=== PATIENT | male | born 1935 | race Caucasian/White ===

== ENCOUNTER 2016-11-11 07:57 | Inpatient (IN) | payer MEDICARE, OTHER ==
[~2016-11-11] VITALS: Ht 175.3 cm; Wt 95.9 kg
[2016-11-11 08:51] VITALS: BP 145/78
[2016-11-11] MEDS ORDERED: ATOR10TA9 PO (09:03)
[2016-11-11] MEDS ORDERED: APIX5TAB PO (09:03)
[2016-11-11] MEDS ORDERED: SOTA80TA8 PO (09:04)
[2016-11-11] MEDS ORDERED: AMLO5TAB4 PO (09:04)
[2016-11-11] MEDS ORDERED: TAMS-11 PO (09:05)
[2016-11-11] MEDS ORDERED: LEVO100T PO (09:05)
[2016-11-11 09:09] LABS: BLOOD UREA NITROGEN 14 mg/dL (7-18)
[2016-11-11] MEDS ORDERED: DORZ10DR7 EACHEYE (09:09)
[2016-11-11] MEDS ORDERED: CHOL20003 PO (09:10)
[2016-11-11] MEDS ORDERED: BIMA2.5D RIGHTEYE (09:12)
[2016-11-11] MEDS ORDERED: PLEASE ENTER ALLERGIES MC SCH ×2 (13:00)
[2016-11-11 14:00] VITALS: BP 138/70
[2016-11-11] MEDS: SODIUM CHLORIDE FLUSH 10ML SYR IVF SCH ×2 (14:07→20:14)
[2016-11-11] MEDS: SOTALOL 80MG TABLET PO SCH (15:42)
[2016-11-11] MEDS ORDERED: CEFAZOLIN PMX 1GM/50ML 50 ML IVPB ONE (16:00)
[2016-11-11] MEDS: SODIUM CHLORIDE 0.9% 1,000 ML IV SCH (16:00)
[2016-11-11] MEDS ORDERED: PROPOFOL 10 MG/ML, 20ML ONE (16:18)
[2016-11-11] MEDS: APIXABAN 5 MG TABLET PO SCH (16:59)
[2016-11-11 19:42] VITALS: BP 145/77
[2016-11-11] MEDS: ATORVASTATIN 10 MG TABLET PO SCH (20:14)
[2016-11-11] MEDS: TAMSULOSIN 0.4 MG CAP.ER.24H PO SCH (20:14)
[2016-11-12 01:41] VITALS: BP 138/79
[2016-11-12] MEDS: SODIUM CHLORIDE 0.9% 1,000 ML IV SCH ×3 (02:43→16:02)
[2016-11-12] MEDS: LEVOTHYROXINE 100 MCG TABLET PO SCH (05:40)
[2016-11-12 06:50] VITALS: BP 139/83
[2016-11-12] MEDS: AMLODIPINE 5 MG TABLET PO SCH (08:33)
[2016-11-12] MEDS: APIXABAN 5 MG TABLET PO SCH ×2 (08:33→21:22)
[2016-11-12] MEDS: TAMSULOSIN 0.4 MG CAP.ER.24H PO SCH ×2 (08:33→21:33)
[2016-11-12] MEDS: SODIUM CHLORIDE FLUSH 10ML SYR IVF SCH ×2 (08:33→21:22)
[2016-11-12] MEDS: SOTALOL 80MG TABLET PO SCH ×2 (08:33→21:22)
[2016-11-12] MEDS ORDERED: FENTANYL PF 100 MCG/2ML ONE (13:11)
[2016-11-12] MEDS ORDERED: CEFAZOLIN 1,000 MG ONE (13:11)
[2016-11-12] MEDS ORDERED: CEFAZOLIN PMX 1GM/50ML 50 ML ONE (13:11)
[2016-11-12] MEDS ORDERED: LIDOCAINE 2%, 20ML ONE (13:11)
[2016-11-12] MEDS ORDERED: MIDAZOLAM 1 MG/ML, 5ML ONE (13:11)
[2016-11-12] MEDS ORDERED: ACETAMINOPHEN 325 MG TABLET PO PRN (20:00)
[2016-11-12 20:29] VITALS: BP 176/89
[2016-11-12] MEDS: ATORVASTATIN 10 MG TABLET PO SCH (21:22)
[2016-11-13 02:15] VITALS: BP 132/74
[2016-11-13] MEDS: LEVOTHYROXINE 100 MCG TABLET PO SCH (06:03)
[2016-11-13 07:09] VITALS: BP_SYST 153; BP_SYST 165; BP_DIAS 76; BP_DIAS 89
[2016-11-13] MEDS: SODIUM CHLORIDE 0.9% 1,000 ML IV SCH ×3 (08:00→16:00)
[2016-11-13] MEDS: APIXABAN 5 MG TABLET PO SCH ×2 (09:00→20:28)
[2016-11-13] MEDS: SODIUM CHLORIDE FLUSH 10ML SYR IVF SCH ×3 (09:05→20:28)
[2016-11-13] MEDS: SOTALOL 80MG TABLET PO SCH ×2 (09:05→20:28)
[2016-11-13] MEDS: TAMSULOSIN 0.4 MG CAP.ER.24H PO SCH (09:05)
[2016-11-13] MEDS: AMLODIPINE 5 MG TABLET PO SCH (09:05)
[2016-11-13] MEDS ORDERED: CEFAZOLIN PMX 1GM/50ML 50 ML ONE (16:36)
[2016-11-13] MEDS ORDERED: FENTANYL PF 100 MCG/2ML ONE (16:36)
[2016-11-13] MEDS ORDERED: MIDAZOLAM 1 MG/ML, 5ML ONE (16:36)
[2016-11-13] MEDS ORDERED: LIDOCAINE 2%, 20ML ONE (16:37)
[2016-11-13] MEDS ORDERED: CEFAZOLIN 1,000 MG ONE (16:37)
[2016-11-13 17:50] VITALS: BP 122/77
[2016-11-13 19:41] VITALS: BP 125/71
[2016-11-13] MEDS: ATORVASTATIN 10 MG TABLET PO SCH (20:28)
[2016-11-14 00:51] VITALS: BP 144/78
[2016-11-14] MEDS: CEFAZOLIN PMX 1GM/50ML 50 ML IVPB SCH ×2 (01:06→09:09)
[2016-11-14] MEDS: LEVOTHYROXINE 100 MCG TABLET PO SCH (05:45)
[2016-11-14 06:30] VITALS: BP 166/87
[2016-11-14] MEDS: SODIUM CHLORIDE FLUSH 10ML SYR IVF SCH ×2 (09:00→09:10)
[2016-11-14] MEDS: TAMSULOSIN 0.4 MG CAP.ER.24H PO SCH (09:09)
[2016-11-14] MEDS: APIXABAN 5 MG TABLET PO SCH (09:09)
[2016-11-14] MEDS: SOTALOL 80MG TABLET PO SCH (09:09)
[2016-11-14] MEDS: AMLODIPINE 5 MG TABLET PO SCH (09:09)
== END 2016-11-14 12:10 | disposition home or self-care (01) | DRG 243 ==
LOC: CACL 07:57 → ORIP 11:13 → UNDOADMOB 11:13 → 5SO 12:32 → ORIP 12:32 → 5SO 14:29 → UNDOADMOB 17:03 → ORIP 17:03 → 5SO 17:03 → INTOOBSV 11-13 08:59 → OBSVTOIN 11-13 08:59 → DCLOUNGE 11-13 11:53 → 5SO 11-14 11:53 → DCLOUNGE 11-14 11:53 → UNDODISIN 11-14 12:10
PROVIDERS: ADMIT Internal Medicine Cardiovascular Disease; ATTEND Internal Medicine Cardiovascular Disease
PROC: 5A2204Z Restoration of Cardiac Rhythm, Single (ICD-10-PCS; principal; 2016-11-11 13:00)
PROC: 0JH606Z Insertion of Pacemaker, Dual Chamber into Chest Subcutaneous Tissue and Fascia, Open Approach (ICD-10-PCS; 2016-11-12)
PROC: 02H63JZ Insertion of Pacemaker Lead into Right Atrium, Percutaneous Approach (ICD-10-PCS; 2016-11-12)
PROC: 02HK3JZ Insertion of Pacemaker Lead into Right Ventricle, Percutaneous Approach (ICD-10-PCS; 2016-11-12)
PROC: 0JWT0PZ Revision of Cardiac Rhythm Related Device in Trunk Subcutaneous Tissue and Fascia, Open Approach (ICD-10-PCS; 2016-11-13)
DX: I49.5 Sick sinus syndrome (principal); D68.69 Other thrombophilia; I48.0 Paroxysmal atrial fibrillation; E03.9 Hypothyroidism, unspecified; E78.5 Hyperlipidemia, unspecified; I10 Essential (primary) hypertension; E05.00 Thyrotoxicosis with diffuse goiter without thyrotoxic crisis or storm; Z86.73 Personal history of transient ischemic attack (TIA), and cerebral infarction without residual deficits; Z87.891 Personal history of nicotine dependence; S20.219A Contusion of unspecified front wall of thorax, initial encounter
CPT/HCPCS: 10140; 33208; 36415; 71010; 80048; 85025; 85610; 92960; 93005; C1779; C1785; C1892; G0378; J0690; J2250; J2704; J3010; J3490; J7030

== ENCOUNTER → 2017-09-30 | Outpatient (CLI) | payer MEDICARE, OTHER ==
[~2017-09-30] MED LIST: AMLO5TAB4 PO; APIX5TAB PO; ATOR10TA9 PO; BIMA2.5D RIGHTEYE; CHOL2000 PO; DORZ10DR7 EACHEYE; LEVO100T PO; SOTA80TA8 PO; TAMS-11 PO
[2017-09-30 12:51] LABS: BASOPHILS # (AUTO) 0.04 x10^3/uL (0-0.1); BASOPHILS % (AUTO) 1 % (0-1); EOSINOPHILS # (AUTO) 0.08 x10^3/uL (0-0.4); EOSINOPHILS % (AUTO) 2 % (1-7); LYMPHOCYTES # (AUTO) 1.51 x10^3/uL (1-3.4); LYMPHOCYTES % (AUTO) 28 % (22-44); MD NO; MEAN CORPUSCULAR HEMOGLOBIN 29.6 pg (27.5-34.5); MEAN CORPUSCULAR HGB CONC 34.1 g/dL (33.2-36.2); MEAN PLATELET VOLUME 8.1 fL (7.4-10.4); MONOCYTES # (AUTO) 0.51 x10^3/uL (0.2-0.8); MONOCYTES % (AUTO) 9 % (2-9); NEUTROPHILS # (AUTO) 3.26 x10^3/uL (1.8-6.8); NEUTROPHILS % (AUTO) 60 % (42-75); PLATELET COUNT 169 x10^3/uL (130-400); RED BLOOD COUNT 5.13 x10^6/uL (4.38-5.82); RED CELL DISTRIBUTION WIDTH 14.1 % (9.4-14.8)
[2017-09-30 12:56] LABS: CHOL/HDL RATIO 2.5; LDL/HDL RATIO 0.9 (0.5-3.0)
== END | disposition home or self-care (01) ==
LOC: RAD 12:22
PROVIDERS: ATTEND Urology
DX: N20.2 Calculus of kidney with calculus of ureter (principal); N40.0 Benign prostatic hyperplasia without lower urinary tract symptoms; K76.89 Other specified diseases of liver; E78.2 Mixed hyperlipidemia; Z79.899 Other long term (current) drug therapy
CPT/HCPCS: 36415; 74176; 80061; 85025

== ENCOUNTER 2019-01-19 09:46 | Day surgery (SDC) | payer MEDICARE, OTHER ==
[~2019-01-19] VITALS: Ht 175.3 cm; Wt 98.2 kg
[2019-01-19] MEDS ORDERED: PROP10DR2 EACHEYE (10:32)
[2019-01-19] MEDS ORDERED: CYCL1DRO EACHEYE (10:32)
[2019-01-19] MEDS ORDERED: FURO20TA3 PO (10:32)
[2019-01-19] MEDS ORDERED: POTA20TA6 PO (10:32)
[2019-01-19] MEDS ORDERED: FINA5TAB4 PO (10:32)
[2019-01-19 10:33] VITALS: BP 134/84
[2019-01-19 11:14] LABS: ANION GAP 7 mmol/L (5-15); CALCIUM 8.8 mg/dL (8.5-10.1); CHLORIDE 107 mmol/L (98-107); CREATININE 0.98 mg/dL (0.7-1.3)
[2019-01-19] MEDS ORDERED: PROPOFOL 10 MG/ML, 20ML ONE (12:03)
== END 2019-01-19 13:15 | disposition home or self-care (01) ==
LOC: CACL 09:46
PROVIDERS: ATTEND Internal Medicine Cardiovascular Disease
DX: I48.0 Paroxysmal atrial fibrillation (principal); I49.5 Sick sinus syndrome; E03.9 Hypothyroidism, unspecified; I10 Essential (primary) hypertension; E78.5 Hyperlipidemia, unspecified; Z87.891 Personal history of nicotine dependence; Z95.0 Presence of cardiac pacemaker
CPT/HCPCS: 36415; 80048; 92960; J2704

== ENCOUNTER → 2019-01-25 | Outpatient (CLI) | payer MEDICARE, OTHER ==
[~2019-01-25] MED LIST changes: +CYCL1DRO EACHEYE; +FINA5TAB4 PO; +FURO20TA3 PO; +POTA20TA6 PO; +PROP10DR2 EACHEYE
== END | disposition home or self-care (01) ==
LOC: CVU 13:41
PROVIDERS: ATTEND Internal Medicine Cardiovascular Disease
DX: I08.3 Combined rheumatic disorders of mitral, aortic and tricuspid valves (principal)
CPT/HCPCS: 93306

== ENCOUNTER → 2019-02-21 | Outpatient (CLI) | payer MEDICARE, OTHER ==
[2019-02-21 12:54] LABS: ANION GAP 6 mmol/L (5-15); CALCIUM 9.1 mg/dL (8.5-10.1); CHLORIDE 105 mmol/L (98-107); CREATININE 1.02 mg/dL (0.7-1.3)
== END | disposition home or self-care (01) ==
LOC: LAB 10:13
DX: R60.9 Edema, unspecified (principal)
CPT/HCPCS: 36415; 80048

== ENCOUNTER → 2020-10-30 | Outpatient (CLI) | payer MEDICARE, OTHER | END | disposition home or self-care (01) | LOC: CFH 10:34 | PROVIDERS: ATTEND Internal Medicine Cardiovascular Disease | DX: I08.8 Other rheumatic multiple valve diseases (principal); I11.9 Hypertensive heart disease without heart failure | CPT/HCPCS: 93306 ==